=== PATIENT | female | born 1980 | race Two or more races ===

== ENCOUNTER 2022-11-17 16:33 | Emergency (ER) | payer OTHER ==
[~2022-11-17] VITALS: Ht 175.3 cm; Wt 77.1 kg
[2022-11-17 19:08] LABS: ALBUMIN 3.6 gm/dL (3.4-5.0); BILIRUBIN TOTAL 0.81 mg/dL (0.3-1.2); CALCIUM 8.4 mg/dL (8.5-10.1); CREATININE SERUM 0.7 mg/dL (0.55-1.02); GFR 92.68; GLOBULINA 3.6 G/DL (2.4-3.5); POTASSIUM 3.77 mEq/L (3.5-5.1); TOTAL PROTEIN 7.2 gm/dL (6.4-8.2)
== END 2022-11-17 19:34 | disposition home or self-care (01) ==
LOC: ER 16:33
PROVIDERS: General Practice
DX: K29.70 Gastritis, unspecified, without bleeding (principal)